=== PATIENT | female | born 1975 | race Caucasian/White ===

== ENCOUNTER 2017-09-13 18:49 | Inpatient (IN) | END 2017-09-18 14:40 | disposition home or self-care (01) | DRG 343 ==

== ENCOUNTER 2018-03-09 13:23 | Emergency (ER) | END 2018-03-09 18:08 | disposition home or self-care (01) ==

== ENCOUNTER 2018-06-17 11:19 | Emergency (ER) | END 2018-06-17 13:45 | disposition left against medical advice (07) ==

== ENCOUNTER 2018-06-18 08:46 | Emergency (ER) | END 2018-06-18 10:44 | disposition home or self-care (01) ==